=== PATIENT | male | born 1975 | race Caucasian/White ===

== ENCOUNTER 2021-04-28 14:32 | Emergency (ER) | payer OTHER ==
[2021-04-28 14:54] VITALS: BP 146/86; PULSE 62; TEMP 98.6; BMI 29.0
[2021-04-28 16:39] LABS: ALBUMIN 4.5 g/dl (3.4-5.0); BILIRUBIN,TOTAL 1.4 mg/dl (0.2-1); CALCIUM 9.5 mg/dl (8.5-10); CREATININE 0.8 mg/dl (0.55-1.3); TOT PROT 7.8 g/dl (6.4-8.2)
[2021-04-28 18:12] LABS: BASO % 0.3 % (0-2.0); EOS % 0.2 % (0-4.5); HEMATOCRIT 46.1 % (35.4-49); HEMOGLOBIN 16.1 GM/dL (11.7-16.9); LYMPH % 16.6 % (8-40); MCH 30.4 pg (25.7-33.7); MCHC 34.9 g/dl (32.0-35.9); MEAN CELL VOLUME 86.9 fl (80-96); MEAN PLT VOLUME 8.4 fl (7.5-11.1); MONO % 8.7 % (3.8-10.2); NEUT % 74.2 % (42.8-82.8); PLATELET COUNT 169 10^3/uL (134-434); RBC 5.31 M/mm3 (4.00-5.60); RDW 12.5 % (11.9-15.9); WHITE BLOOD COUNT 5.4 K/mm3 (4.0-10.0)
== END 2021-04-28 17:58 | disposition home or self-care (01) ==
LOC: FER 14:32
DX: R05.9 Cough, unspecified (principal)
CPT/HCPCS: 36415; 80053; 84484; 85025; 93005; 99283-25; C9803-CS; U0003; U0005